=== PATIENT | male | born 1990 ===

== ENCOUNTER 2018-12-13 13:40 | Emergency (ER) | payer OTHER ==
[2018-12-13] MEDS ORDERED: SOLU-Medrol IV ONE (13:48)
[2018-12-13] MEDS ORDERED: BENADRYL PO ONE (13:48)
[2018-12-13] MEDS ORDERED: PEPCID IV ONE (13:48)
[2018-12-13] MEDS ORDERED: NACL 0.9% 1000 ML 1,000 ML IV ONE (13:48)
--- NOTE | 2018-12-13 13:49 | Emergency Department Report ---
HPI - General Chief Complaint: Allergic Reaction Time Seen by Provider: 12/13/18 13:48 ED Past Medical Hx - Past Medical History Previous Medical History?: No - Surgical History Past Surgical History?: No ED Review of Systems ROS: Stated complaint: MEDICAL CLEARANCE Other details as noted in HPI Critical care attestation.: If time is entered above; I have spent that time in minutes in the direct care of this critically ill patient, excluding procedure time. ED Disposition Condition: Stable
--- NOTE | 2018-12-13 13:50 | Event Note ---
ED Screening Note ED Screening Note: WASP BITE RN SAW AND SENT TO MAIN [facility] PER RN ORDERS PLACED This initial assessment/diagnostic orders/clinical plan/treatment(s) is/are subject to change based on patients health status, clinical progression and re- assessment by fellow clinical providers in the ED. Further treatment and workup at subsequent clinical providers discretion. Patient/guardian urged not to elope from the ED as their condition may be serious if not clinically assessed and managed. Initial orders include:
[2018-12-13] MEDS ORDERED: ADRENALINE P/F ONE (14:04)
[2018-12-13] MEDS ORDERED: ADRENALINE P/F SUB-Q ONE (14:05)
--- NOTE | 2018-12-13 15:09 | Emergency Department Report ---
ED Allergic Reaction HPI - General Chief complaint: Allergic Reaction Stated complaint: MEDICAL CLEARANCE Time Seen by Provider: 12/13/18 13:48 Source: patient Mode of arrival: Ambulatory Limitations: Language Barrier - History of Present Illness Initial Comments: 28-year-old male presents to ED after being stung by wasp. Patient reports itching, rash. States throat feels tight. Denies abdominal pain, nausea, vomiting. MD Complaint: allergic reaction -: This afternoon Exposure: insect bite Symptoms: rash, itching Severity: moderate Treatment Prior to Arrival: none Previous Allergy History: prior ED visit(s) (for wasp sting) - Related Data Previous Rx's Medication Instructions Recorded Last Taken Type EPINEPHrine [Epipen] 0.3 mg IJ ONCE PRN #1 auto.injct 12/13/18 Unknown Rx predniSONE [Deltasone] 50 mg PO QDAY #5 tab 12/13/18 Unknown Rx Allergies Allergy/AdvReac Type Severity Reaction Status Date / Time No Known Allergies Allergy Unverified 12/13/18 13:41 ED Review of Systems ROS: Stated complaint: MEDICAL CLEARANCE Other details as noted in HPI Comment: All other systems reviewed and negative Respiratory: denies: cough, shortness of breath, wheezing Gastrointestinal: denies: abdominal pain, nausea, vomiting Skin: rash ED Past Medical Hx - Past Medical History Previous Medical History?: No - Surgical History Past Surgical History?: No - Social History Smoking Status: Current Every Day Smoker Substance Use Type: None - Medications Home Medications: Home Medications Medication Instructions Recorded Confirmed Last Taken Type EPINEPHrine [Epipen] 0.3 mg IJ ONCE PRN #1 auto.injct 12/13/18 Unknown Rx predniSONE [Deltasone] 50 mg PO QDAY #5 tab 12/13/18 Unknown Rx ED Physical Exam - General Limitations: Language Barrier General appearance: alert, in no apparent distress - Head Head exam: Present: atraumatic, normocephalic - Eye Eye exam: Present: normal appearance, PERRL, EOMI - ENT ENT exam: Present: normal orophraynx, mucous membranes moist, other (no swelling present, uvula midline) - Neck Neck exam: Present: normal inspection - Respiratory Respiratory exam: Present: normal lung sounds bilaterally. Absent: respiratory distress, wheezes, stridor - Cardiovascular Cardiovascular Exam: Present: regular rate, normal rhythm - GI/Abdominal GI/Abdominal exam: Absent: distended - Extremities Exam Extremities exam: Present: normal inspection - Neurological Exam Neurological exam: Present: alert, oriented X3, CN II-XII intact. Absent: motor sensory deficit - Psychiatric Psychiatric exam: Present: normal affect, normal mood - Skin Skin exam: Present: rash (diffuse urticarial rash) ED Course Vital Signs 12/13/18 12/13/18 12/13/18 13:47 13:50 14:00 Temperature 97.8 F Pulse Rate 84 75 Respiratory 18 18 Rate Blood Pressure 120/43 120/43 123/64 O2 Sat by Pulse 98 97 Oximetry 12/13/18 12/13/18 12/13/18 14:16 14:30 14:45 Temperature Pulse Rate 85 73 74 Respiratory 18 12 17 Rate Blood Pressure 117/34 108/50 114/56 O2 Sat by Pulse 99 98 98 Oximetry 12/13/18 12/13/18 12/13/18 15:00 15:15 15:30 Temperature Pulse Rate 69 65 68 Respiratory 14 17 12 Rate Blood Pressure 111/58 108/53 96/44 O2 Sat by Pulse 97 97 98 Oximetry 12/13/18 12/13/18 15:45 16:00 Temperature Pulse Rate 66 75 Respiratory 16 11 L Rate Blood Pressure 109/46 110/47 O2 Sat by Pulse 98 94 Oximetry ED Medical Decision Making - Medical Decision Making 28-year-old male with allergic reaction following a wasp sting. Patient with diffuse urticaria. Benadryl, Solu-Medrol, and Pepcid given. Patient reported that throat felt tight behind initial presentation, so epinephrine was given. However, patient had no other signs of anaphylaxis, no stridor or wheezing, no vomiting, normal vital signs. Patient observed in ED. Symptoms resolved, feels okay for discharge home. Return precautions given, outpatient follow-up advised. - Differential Diagnosis allergic reaction, anaphylaxis Critical care attestation.: If time is entered above; I have spent that time in minutes in the direct care of this critically ill patient, excluding procedure time. ED Disposition Clinical Impression: Allergic reaction to insect sting Disposition: DC-01 TO HOME OR SELFCARE Is pt being admited?: No Condition: Stable Instructions: Allergies (ED) Prescriptions: predniSONE [Deltasone] 50 mg PO QDAY #5 tab EPINEPHrine [Epipen] 0.3 mg IJ ONCE PRN #1 auto.injct PRN Reason: Anaphylaxis Referrals: [facility] [Provider Group] - 3-5 Days Time of Disposition: 15:09 Print Language: CANADI[place]
[2018-12-13 16:11] VITALS: BP 110/47
== END 2018-12-13 16:12 | disposition home or self-care (01) ==
LOC: ED 13:40
DX: T63.481A Toxic effect of venom of other arthropod, accidental (unintentional), initial encounter (principal); Y92.89 Other specified places as the place of occurrence of the external cause
CPT/HCPCS: 96372; 96374; 96375; 99283; J0171; J2930; J7030